=== PATIENT | male | born 1955 | race Caucasian/White ===

== ENCOUNTER 2016-08-28 05:53 | Day surgery (SDC) | payer OTHER ==
[2016-08-28] VITALS (13 sets, daily range): BP systolic 139–171; BP diastolic 78–88; PULSE 80–113; RESP 16–22; Ht 180.3 cm; Wt 82.7 kg
[~2016-08-28] VITALS: Ht 180.3 cm; Wt 82.7 kg
[2016-08-28] MEDS ORDERED: LIDOCAINE 1% (MDV) 20 ML INJ ONE (06:22)
[2016-08-28] MEDS ORDERED: IODIXANOL LOCM 100 ML BTL ONE (06:22)
[2016-08-28] MEDS ORDERED: MIDAZOLAM 1 MG/ML 2 ML INJ ONE (06:22)
[2016-08-28] MEDS ORDERED: FENTAnyl 50 MCG/ML VIAL ONE (06:22)
[2016-08-28] MEDS ORDERED: SOD CHLORIDE 0.9% 500 ML ONE (06:23)
[2016-08-28 06:52] LABS: BASOPHIL # 0.1 10^3/ul (0.0-0.1); BASOPHILS % 0.5 % (0.0-2.0); EOSINOPHILS # 0.3 10^3/ul (0.0-0.5); EOSINOPHILS % 2.3 % (0.0-7.0); HEMATOCRIT 42.8 % (42.0-52.0); HEMOGLOBIN 15.1 g/dl (14.0-18.0); LYMPHOCYTES # 2.8 10^3/ul (0.8-2.9); LYMPHOCYTES % 23.6 % (15.0-51.0); MEAN CORPUSCULAR HEMOGLOBIN 33.4 pg (29.0-33.0); MEAN CORPUSCULAR HGB CONC 35.3 g/dl (32.0-37.0); MEAN CORPUSCULAR VOLUME 94.6 fl (82.0-101.0); MEAN PLATELET VOLUME 7.4 fl (7.4-10.4); MONOCYTE # 0.9 10^3/ul (0.3-0.9); MONOCYTES % 7.4 % (0.0-11.0); NEUTROPHILS % 66.2 % (39.0-77.0); PLATELET COUNT 311 10^3/UL (140-440); RED BLOOD COUNT 4.52 10^6/ul (4.70-6.10); RED CELL DISTRIBUTION WIDTH 12.4 % (11.5-14.5); UNCORRECTED WBC 12.1 10^3/ul (4.8-10.8); WHITE BLOOD COUNT 12.1 10^3/ul (4.8-10.8)
[2016-08-28 06:57] LABS: CONDITION 1
[2016-08-28] MEDS ORDERED: METO50TA16 PO (07:00)
[2016-08-28] MEDS ORDERED: LOSA1TAB19 PO (07:00)
[2016-08-28] MEDS ORDERED: SIMV5TAB50 PO (07:00)
[2016-08-28] MEDS ORDERED: CYCL5TAB PO (07:00)
[2016-08-28 07:16] LABS: INR 0.89; PT RATIO 0.9
[2016-08-28 07:21] LABS: CALCIUM 9.7 mg/dl (8.4-10.2); CREATININE 0.8 mg/dl (0.61-1.24); POTASSIUM 3.9 mmol/L (3.5-5.1)
[2016-08-28] MEDS ORDERED: DIPHENHYDRAMINE 50 MG INJ ONE (07:36)
--- NOTE | 2016-08-28 15:49 | SP ---
DATE OF PROCEDURE: 08/28/2016 INDICATION FOR THE PROCEDURE: Abnormal cardiac stress test with shortness of breath and chest pain, angina. The patient has been having episodes of worsening angina. As a result, the patient presents for an angiography. PROCEDURE: 1. Left heart catheterization. 2. Selective right coronary angiography. 3. Selective left coronary angiography. 4. O2 sat monitoring and blood pressure monitoring. 5. Defibrillator pad placements anteriorly and posteriorly. 6. Left ventriculogram. 7. Right femoral artery angiography and Angio-Seal deployment. DESCRIPTION OF PROCEDURE: After informed consent was obtained by the patient, the patient was broug ht into the cardiac catheterization laboratory where the patient's right groin was prepped and drape d in usual sterile fashion. Following this, 1% lidocaine was used in order to infiltrate the right groin. Then, following this, a 6-[place] sheath was placed into the right femoral artery with no com plications. Angiography was performed. FINDINGS: 1. There was no left main disease. 2. The LAD had approximately less than 5% stenosis. 3. The circumflex coronary artery had less than 5% stenosis. 4. The RCA was codominant and had less than 5% stenosis as well. 5. Left ventriculogram revealed an ejection fraction of 60%. IMPRESSION: Successful left heart catheterization with no significant vascular disease discovered f or revascularization. Dictated By: CORTES HARTMAN MD LP/NTS Conf#: [id number] DID#: [id number] CC: CORTES HARTMAN MD;*EndCC*
== END 2016-08-28 14:16 | disposition home or self-care (01) ==
LOC: SDS 05:53
PROVIDERS: ATTEND Internal Medicine
DX: R07.9 Chest pain, unspecified (principal); R94.39 Abnormal result of other cardiovascular function study; R06.02 Shortness of breath; E78.5 Hyperlipidemia, unspecified; I10 Essential (primary) hypertension
CPT/HCPCS: 80048; 85025; 85610; 85730; 93458; C1760; C1887; C1894; J1200; J1644; J2250; J3010; J7040; Q9967; Z7610